=== PATIENT | female | born 1990 | race Two or more races ===

== ENCOUNTER 2017-01-17 13:34 | Emergency (ER) | payer OTHER ==
[2017-01-17] MEDS ORDERED: IOPAMIDOL 300 (61%) 150 ML VIAL IV ONE (13:35)
[2017-01-17 14:05] LABS: SPECIFIC GRAVITY 1.005 (1.001-1.030); URINE BILIRUBIN NEGATIVE (NEGATIVE); URINE BLOOD 1+ (NEGATIVE); URINE GLUCOSE (UA) NEGATIVE (NEGATIVE); URINE LEUKOCYTE ESTERASE NEGATIVE (NEGATIVE); URINE NITRITE NEGATIVE (NEGATIVE); URINE PROTEIN NEGATIVE (NEGATIVE); URINE UROBILINOGEN NORMAL (0-1 mg/dl)
[2017-01-17 14:11] LABS: URINE APPEARANCE CLEAR; URINE COLOR YELLOW
[2017-01-17 14:25] LABS: URINE BACTERIA FEW; URINE MUCUS 1+; URINE WBC 0-1 /hpf
[2017-01-17 14:54] LABS: HCG,QUALITATIVE URINE NEGATIVE
[2017-01-17 15:08] LABS: ABSOLUTE NEUTROPHIL COUNT 6.1 K/mm3 (1.8-7.7); BASO # 0.1 K/mm3 (0.0-0.2); BASO % 0.6 % (0.2-1.0); EOS # 0.2 (0.0-0.5); EOS % 1.7 % (0.9-2.9); HEMATOCRIT 39.3 % (37.0-47.0); HEMOGLOBIN 13.5 gm/l (12.0-16.0); IMM NEUT% 0.3 % (0-1); LYMPH # 2.5 (1.0-4.8); LYMPH % 26.7 % (15-45); MEAN CELL VOLUME 84.2 fl (81.0-99.0); MEAN CORPUSCULAR HEMOGLOBIN 28.9 pg (27.0-31.0); MEAN CORPUSCULAR HGB CONC 34.4 g/dl (33.0-37.0); MEAN PLATELET VOLUME 9.9 fl (7.4-10.4); MONO # 0.7 (0.0-0.8); MONO % 6.8 % (4-12); NEUT % 63.9 % (43-75); PLATELET COUNT 308 K/mm3 (130-400); RED CELL DISTRIBUTION WIDTH 12.6 % (11.5-14.5)
[2017-01-17 15:09] LABS: ALB/GLOB RATIO 1.3 (>1.0); CALCIUM 8.9 mg/dL (8.6-10.3)
[2017-01-17] MEDS ORDERED: KETOROLAC TROMETHAMINE 30 MG/ML 1 ML VIAL ONE (15:14)
--- NOTE | 2017-01-17 15:30 | CT ---
CT ABDOMEN AND PELVIS WITH CONTRAST HISTORY: Right lower quadrant pain. TECHNIQUE: Following intravenous administration of 125 mL Isovue-300, contiguous axial images were acquired from the lung bases to the ischial tuberosities. Oral contrast was not administered. COMPARISON:None. FINDINGS: LUNG BASES: No gross airspace consolidation or pleural effusion. LIVER: No focal lesion. SPLEEN: No focal lesion. PANCREAS: No focal lesion. ADRENAL GLANDS: No mass effect. KIDNEYS: 8 mm left renal cyst, otherwise unremarkable. GALLBLADDER: Contracted appearance. BOWEL: Moderate fecal loading. Limited assessment of the distal colon due to decompression. No abnormal small bowel dilatation. Minor wall thickening of proximal small bowel. APPENDIX: Normal gas-filled appendix. PELVIC ORGANS: No gross mass effect. FREE FLUID: No gross free fluid identified. ABDOMINOPELVIC LYMPH NODES: No abnormally enlarged lymph nodes identified. ABDOMINAL AORTA: Normal caliber. OSSEOUS STRUCTURES: No grossly destructive lesions. IMPRESSION: Normal appendix. Findings raise suspicion for enteritis without obstructive change. Findings discussed with Dr. Dunn of the Emergency Medicine clinical service on 01/17/2017 at 1526 hours.
[2017-01-18 13:52] LABS: CHLAMYDIA BD Negative (Negative); N.GONORRHOEAE BD Negative (Negative); SOURCE Urine (())
== END 2017-01-17 15:53 | disposition home or self-care (01) ==
LOC: ED 13:34
DX: R10.31 Right lower quadrant pain (principal)
CPT/HCPCS: 83690; 87491; 87591; 81025; 85025; 80053; 81001; 74177; 99284 ×2; 96374; J1885; Q9967